=== PATIENT | female | born 1975 | race Caucasian/White ===

== ENCOUNTER → 2021-08-06 | Day surgery (SDC) | payer MEDICARE, OTHER ==
[~2021-08-06] VITALS: Ht 167.6 cm; Wt 111.0 kg
[~2021-08-06] MED LIST: CLIN50GE TP; IV RINGERS,LACTATED 1000ML 1,000 ML IV SCH; PROPOFOL 10 MG/ML (20ML) VIAL. IV ONE; fentaNYL PF VIAL 100 MCG/2 ML VIAL IVP PRN
[2021-08-06 08:05] VITALS: BP 145/69
[2021-08-06 08:55] VITALS: BP 123/60
--- NOTE | 2021-08-09 14:21 | PATHOLOGY ---
[facility] Accession Number: [id number] . 01 Material submitted: . colon - RANDOM COLON BIOPSIES . 01 Clinical history: . CHRONIC DIARRHEA, RECTAL BLEEDING . 02 Diagnosis: Colonic mucosa, random colon biopsies: - No significant pathologic abnormalities. LBQ 08/09/2021 1125 Local . 02 Comment: Sections of the random colon biopsy reveal multiple segments of colonic mucosa containing several mucosal-associated lymphoid aggregates. There is no evidence of a chronic destructive colitis, lymphocytic colitis, or collagenous colitis. (JPM/db; 08/09/2021) . 02 Electronically signed: . Fran Ross MD, Pathologist NPI- [id number] . 01 Gross description: . The specimen is received in formalin, labeled "Nancy Richardson, random colon biopsies". Received are multiple, clemons-pink, soft tissue fragments, ranging in size from 0.2-0.4 cm, in greatest dimension. The specimen is entirely submitted in cassette A1. (J; 08/06/2021) JGG/JGG 08/06/2021 1902 Local . 02 Pathologist provided ICD-10: K52.9, K62.5 . 02 CPT . 835070 Specimen Comment: A courtesy copy of this report has been sent to [phone] Specimen Comment: Report sent to Specimen Comment: A duplicate report has been generated due to demographic updates. Performed at: 01 [facility] [address] [id number] MD Everton Hilario MD Phone: [phone] Performed at: 02 [facility] [address] [place], [place] [id number] MD Fran Ross MD Phone: [phone]
== END | disposition home or self-care (01) ==
LOC: ENDOS 07:35
PROVIDERS: ATTEND Internal Medicine Gastroenterology
DX: K92.1 Melena (principal); K52.9 Noninfective gastroenteritis and colitis, unspecified; K62.5 Hemorrhage of anus and rectum; K57.30 Diverticulosis of large intestine without perforation or abscess without bleeding; K63.89 Other specified diseases of intestine; K64.0 First degree hemorrhoids; F41.9 Anxiety disorder, unspecified; Z87.891 Personal history of nicotine dependence; Z79.899 Other long term (current) drug therapy; Z98.890 Other specified postprocedural states
CPT/HCPCS: 45380; 81025; 88305; J2704